=== PATIENT | male | born 1980 | race African-American/Black ===

== ENCOUNTER 2019-08-16 06:00 | Emergency (ER) | payer OTHER, SELFPAY ==
[2019-08-16] MEDS ORDERED: Tetracaine 0.5% OPHTH SOLN/PF 4 ML BOT ONE (06:16)
[2019-08-16] MEDS ORDERED: Fluorescein Opthalmic Strip ONE (06:16)
== END 2019-08-16 06:44 | disposition home or self-care (01) ==
LOC: BURERS 06:00
DX: B30.9 Viral conjunctivitis, unspecified (principal); I10 Essential (primary) hypertension; G20 Parkinson's disease
CPT/HCPCS: 99282

== ENCOUNTER 2020-02-23 15:03 | Emergency (ER) | payer OTHER ==
--- NOTE | 2020-02-23 17:39 | RAD ---
CHEST TWO VIEWS: 02/23/20 The heart is normal in size and the lungs are clear. No infiltrate or effusion was seen. The mediasti num appears normal. IMPRESSION: No acute thoracic finding. POS: HOME
[2020-02-24 12:07] LABS: SARS-CoV-2 MS2 Positive; SARS-CoV-2 N Gene Negative; SARS-CoV-2 S Gene Negative; SARS-CoV-2 orf1ab Negative
== END 2020-02-23 17:55 | disposition home or self-care (01) ==
LOC: BURERS 15:03
DX: B34.9 Viral infection, unspecified (principal); J44.9 Chronic obstructive pulmonary disease, unspecified; I10 Essential (primary) hypertension; G20 Parkinson's disease; F17.210 Nicotine dependence, cigarettes, uncomplicated; Z79.899 Other long term (current) drug therapy; Z20.828 Contact with and (suspected) exposure to other viral communicable diseases
CPT/HCPCS: 71046; 87635; 87804; 93005; U0003

== ENCOUNTER 2020-02-24 12:54 | Emergency (ER) | payer OTHER | END 2020-02-24 13:23 | disposition home or self-care (01) | LOC: BURERS 12:54 | DX: R07.9 Chest pain, unspecified (principal); J44.9 Chronic obstructive pulmonary disease, unspecified; G20 Parkinson's disease; I10 Essential (primary) hypertension; F41.9 Anxiety disorder, unspecified; F20.9 Schizophrenia, unspecified; F17.210 Nicotine dependence, cigarettes, uncomplicated; Z79.899 Other long term (current) drug therapy | CPT/HCPCS: 93005 ==